=== PATIENT | male | born 1990 | race Caucasian/White ===

== ENCOUNTER 2016-09-22 17:43 | Emergency (ER) | payer OTHER | END 2016-09-22 18:27 | disposition home or self-care (01) | LOC: ER 17:43 | PROC: 0HQFXZZ Repair Right Hand Skin, External Approach (ICD-10-PCS; principal; 2016-09-22) | DX: S61.250A Open bite of right index finger without damage to nail, initial encounter (principal); W57.XXXA Bitten or stung by nonvenomous insect and other nonvenomous arthropods, initial encounter | CPT/HCPCS: 90471; 90714; 99284; A9270-GY ==